=== PATIENT | female | born 1985 | race Hispanic/Latino ===

== ENCOUNTER 2016-06-27 19:07 | Emergency (ER) | payer MEDICAID, OTHER ==
[2016-06-27 19:18] VITALS: BP 141/97; PULSE 95; RESP 18; TEMP 97.9; O2SAT 100
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
--- NOTE | 2016-06-28 10:39 | RAD ---
PROCEDURE: Radiographs of the Right Shoulder HISTORY: trauma COMPARISON: No prior. FINDINGS: BONES: Normal. No fracture. JOINTS: Normal. Glenohumeral and acromioclavicular joints preserved. No osteoarthritis. SOFT TISSUES: Normal. OTHER FINDINGS: None. IMPRESSION: No acute findings related to/accounting for the clinical presentation.
== END 2016-06-27 20:47 | disposition home or self-care (01) ==
LOC: H.ER 19:07
DX: M25.511 Pain in right shoulder (principal); I10 Essential (primary) hypertension

== ENCOUNTER 2016-06-29 20:42 | Emergency (ER) | payer MEDICAID ==
[2016-06-29 20:51] VITALS: BP 143/114; PULSE 100; RESP 16; TEMP 98.6; O2SAT 98
--- NOTE | 2016-06-29 21:23 | ED PDOC ---
HPI: General Adult Time Seen by Provider: 06/29/16 21:19 Chief Complaint (Nursing): Med Refill Chief Complaint (Provider): pain control History Per: Patient History/Exam Limitations: no limitations Additional Complaint(s): 31yo F in ED for eval of shoulder injury-pt was seen in ED recently dx with shoulder sprain and given arm sling Rx for ultram. however, pt states that ultram has been making her dizzy, nauseous, abdominal pain and uneasy. Pt with allergy to naproexn pt is no longer wearing sling-states it hurts her. Pt states that has tried motrin but with limited relief. Past Medical History Reviewed: Historical Data, Nursing Documentation, Vital Signs Vital Signs: Last Vital Signs Temp 98.6 F 06/29/16 20:47 Pulse 100 H 06/29/16 20:47 Resp 16 06/29/16 20:47 BP 143/114 H 06/29/16 20:47 Pulse Ox 98 06/29/16 20:47 - Medical History PMH: Back Problems, HTN - Surgical History Surgical History: - Family History Family History: States: Unknown Family Hx - Home Medications Home Medications: Ambulatory Orders Medication Instructions Recorded Tramadol HCl [Ultram] 50 mg PO BID PRN #14 tablet 06/27/16 Ketorolac Tromethamine [Toradol] 10 mg PO TID #30 tab 06/29/16 - Allergies Allergies/Adverse Reactions: Allergies Allergy/AdvReac Type Severity Reaction Status Date / Time naproxen Allergy ANAPHYLAXIS Verified 06/27/16 19:14 Review of Systems ROS Statement: Except As Marked, All Systems Reviewed And Found Negative Musculoskeletal: Positive for: Shoulder Pain Physical Exam - Reviewed Nursing Documentation Reviewed: Yes Vital Signs Reviewed: Yes - Physical Exam Appears: Positive for: Well, Non-toxic, No Acute Distress Head Exam: Positive for: ATRAUMATIC, NORMAL INSPECTION, NORMOCEPHALIC Skin: Positive for: Normal Color, Warm Cardiovascular/Chest: Positive for: Regular Rate, Rhythm Respiratory: Positive for: CNT, Normal Breath Sounds Neurologic/Psych: Positive for: Alert, Oriented - ECG O2 Sat by Pulse Oximetry: 98 Medical Decision Making Medical Decision Making: Rx changed to . advised strongly to take with food. also advised to f.u with pain mgnt if worsened. Disposition - Clinical Impression Clinical Impression: Shoulder sprain - Patient ED Disposition Is Patient to be Admitted: No Counseled Patient/Family Regarding: Need For Followup - Disposition Disposition: Routine/Home Disposition Time: 21:28 Condition: STABLE Prescriptions: Ketorolac Tromethamine [Toradol] 10 mg PO TID #30 tab Instructions: Shoulder Sprain (ED)
== END 2016-06-29 22:15 | disposition home or self-care (01) ==
LOC: H.ER 20:42
DX: R42 Dizziness and giddiness (principal); I10 Essential (primary) hypertension; R10.9 Unspecified abdominal pain